=== PATIENT | female | born 1990 | race Caucasian/White ===

== ENCOUNTER 2025-01-10 13:21 | Outpatient (AMB) | payer BC, OTHER, SELFPAY ==
--- NOTE | 2025-01-10 13:39 | AMB.GYNCLNOT ---
Vital Signs 01/10/25 13:44 Height 1.73 m Height Method Stated Weight 73.539 kg Weight Measurement Method Standing Scale BMI 24.6 BP 134/83 H Blood Pressure Source Automatic Cuff Blood Pressure Location Right Upper Arm Position Sitting Respiration 18 Pulse 71 Pulse Source Monitor Temp 98.2 F Temp Source Temporal Artery Scan Pulse Oximetry (%) 98 Oxygen Delivery Method Room Air Allergies/Home Meds Allergies & Medications Allergies No Known Allergies Allergy (Verified 02/04/25 19:25) Intake Visit Data Collection New Patient or Established: New Patient (never been to [facility]) Reason for Visit:: DISCUSS RECURRENT SAB Seen by Clinical Staff ONLY (RN/MA): No Titrator Required: No Do You Feel Safe at Home: Yes Authorities Contacted: N/A Primary Care Provider: NO PRIMARY CARE PCP or OBGYN visit in last 3 months: No Hx Now: No Are you currently on any form of Control: No Last menstrual period: 12/21/24 Pain Present Currently: No Smoking Status Smoking Status: Never smoker Patrol Guard history Patrol Guard History Menstrual regularity: regular Flow: light Monthly: Yes How many days does period last: 5 Age at menarche: 13 Currently sexually active: Yes ER PHYSICIAN: Past Medical History Additional Operations/Hospitalizations (year & reason): in 2019 in 2021 D&C January 2024 Other Relevant History: No chronic medical problems. No diabetes, no hypertension, no asthma. No medications. Questionnaires Covid-19 Vaccine Questionnaire Has patient been vacinated for Covid-19 Have you been vacinated for Covid-19: No PHQ-9 PHQ-2 Over the last 2 weeks, how often have you been bothered by any of the following problems? 1. Little interest or pleasure in doing things: not at all 2. Feeling down, depressed, or hopeless: not at all Total score: 0 Social History Living Situation History Marital Status: Lives With: Family Housing: House Housing Other:: The patient has a 5-year-old and 3-year-old at home. Tobacco History Smoking Status: Never smoker Alcohol History Alcohol Intake: Never Alcohol Intake Frequency: 0-2 Drinks per Day Domestic Abuse History Do You Feel Safe at Home: Yes History of Present Illness HPI Narrative The patient is a 34-year-old -0-2-2 history of x 2. The first was in 2019. She was my patient in [place]. The first was for chorioamnionitis and the second one was a repeat . The patient had desired a TOLAC with that delivery but the physician on-call would not allow that.. She then went on to have a miscarriage in 2023. She was 11 weeks along. She ended up bleeding heavily and went to the ER in [place] where a suction D&C was performed. She needed a lot of medications after the D&C to control her bleeding but did not end up with a blood transfusion. In October 2024 she got again and miscarried a 10-week on her own with no D&C. The patient is wondering why she keeps miscarrying. She is healthy. She has no new medical conditions. Her is also healthy. He has been the same partner for all her pregnancies. She would also like a Pap smear done today because this has not been done since 2021. Her cycles are regular monthly lasting 5 days they occur every 28 days. Patient did not release her records from [place] to me. Review of Systems Review of Systems Narrative Review of Systems: Patient reports frequent headaches. No hot flashes, no night sweats. Her cycles are regular monthly. No dyspareunia. No joint complaints. No urinary complaints Exam General Limitations: no limitations General Appearance: alert, in no apparent distress, comfortable, cooperative, well groomed and anxious Neck Neck exam: Present normal inspection, full ROM and trachea midline Chest Chest inspection: Present normal inspection and symmetric chest wall rise Exp Chest Breast: bilateral: other (Normal breast exam bilaterally) Resp Respiratory exam: Present normal lung sounds bilaterally Card Cardiovascular exam: Present regular rate, normal rhythm and normal heart sounds Abdominal Abdominal exam: Present soft, normal bowel sounds and scar (Well-healed Pfannenstiel scar present) External exam: Present normal external exam Speculum exam: Present normal speculum exam Bimanual exam: Present normal bimanual exam (Uterus is anteverted, normal-sized nontender. No adnexal masses or tenderness) Extremities Extremities exam: Present normal inspection and full ROM Psych Psychiatric exam: Present normal affect and normal mood Skin Skin exam: Present warm, dry, intact and normal color Office Procedures OB Clinic LOC & Office Proc's Nursing/Assessment Patient Status: Initial/New Patient OB Clinic Nursing Assessment: Medication Reconciliation, Update PMH in EMR and Vital Signs OB Clinic Coordination of Care: Education Complex Pt/Fam, Consent,records obtained, informed consent, Lab and Imaging orders and Staff clarify orders New Patient Charge New Patient Point Assignment: [id number] New Patient Point Charge: HISTOLOGICAL ILLUSTRATOR Level 3 ([id number]) Assessment & Plan Diagnosis / Problem List (1) History of recurrent , not currently : Status: Acute Assessment and Plan: I will order lab work including thyroid levels, TSH, thyroid peroxidase antibodies, anticardiolipin antibodies IgG and IgM, lupus anticoagulant and anti-B2 Glyco lipoprotein levels. Patient can continue her vitamins, baby aspirin, and extra folic acid. She can take progesterone when she is . I told the patient we do not do VBACs at [facility] especially not on 2 prior C-sections so if she does become and she wants to she will not be able to deliver at [facility]. I explained that we do not have anesthesia available 24 hours a day immediately and so it is not safe for her to . This is the hospital policy. Her ultrasound is normal with no signs of fibroids or cavity abnormalities. The patient might be interested in screening through [employer] for recessive genes. We will put her in contact with the rep who can get this set up and ordered. If she is positive then her needs to be tested. Karyotyping might be quite expensive for both the patient and her but it is also a possibility. (2) Women's annual routine gynecological examination: Status: Acute Assessment and Plan: Pap with high-risk HPV is performed breast exam done encouraged BUSINESS INTELLIGENCE MANAGER: Papsmear Pap Smear Procedure [place] in room during procedure?: No Pre-op diagnosis general: Annual wellness exam Post-op diagnosis procedure note: Same Procedure Notes:: Pap with high-risk HPV was performed Papsmear completed: yes
[2025-01-10 13:44] VITALS: BP 134/83; PULSE 71; RESP 18; TEMP 36.8; O2SAT 98; BMI 24.6
== END 2025-01-10 14:16 | disposition home or self-care (01) ==
LOC: HODSOBC 13:21
PROVIDERS: Supervising Provider Obstetrics & Gynecology; Visit Provider Obstetrics & Gynecology
DX: Z01.419 Encounter for gynecological examination (general) (routine) without abnormal findings (principal); N96 Recurrent pregnancy loss
CPT/HCPCS: 99203; G0463

== ENCOUNTER 2025-02-21 09:54 | Outpatient (AMB) | payer BC, OTHER, SELFPAY ==
[2025-02-21 10:01] VITALS: BP 120/80; PULSE 77; RESP 17; TEMP 36.5; O2SAT 97; BMI 24.4
--- NOTE | 2025-02-21 10:01 | AMB.GYNCLNOT ---
Vital Signs 02/21/25 10:01 Height 1.73 m Height Method Measured Weight 73.085 kg Weight Measurement Method Standing Scale BMI 24.4 BP 120/80 Blood Pressure Source Automatic Cuff Blood Pressure Location Right Upper Arm Position Sitting Respiration 17 Pulse 77 Pulse Source Monitor Temp 97.7 F Temp Source Temporal Artery Scan Pulse Oximetry (%) 97 Oxygen Delivery Method Room Air Allergies/Home Meds Allergies & Medications Allergies No Known Allergies Allergy (Verified 02/21/25 10:02) Medication Reconciliation No Known Home Medications 02/04/25 [History Confirmed 02/21/25] Intake Visit Data Collection New Patient or Established: Established Patient (seen at [facility] within 3 years) Reason for Visit:: DISCUSS LAB RESULTS Consent obtained for Telemed Visit: No Seen by Clinical Staff ONLY (RN/MA): No Carpet Sewer Required: No Do You Feel Safe at Home: Yes Authorities Contacted: N/A PCP or OBGYN visit in last 3 months: Yes Date of Last PCP or OBGYN visit: 01/10/25 Hx Now: No Are you currently on any form of Control: No Pain Present Currently: No Pain Scale Used: [place]-/Numerical Pain scale:: 0 Smoking Status Smoking Status: Never smoker 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 1. Little interest or pleasure in doing things: not at all Social History Living Situation History Lives With: Family Housing: House Housing Other:: The patient has a 5-year-old and 3-year-old at home. Tobacco History Smoking Status: Never smoker Alcohol History Alcohol Intake: Never Alcohol Intake Frequency: 0-2 Drinks per Day Domestic Abuse History Do You Feel Safe at Home: Yes History of Present Illness HPI Narrative The patient is a 34-year-old -0-2-2 presents to discuss ultrasound results. She did have an ultrasound at [facility] which I do not have on the chart. We will try to get a hold of these results. She had some lab work at [facility] including thyroid ,prolactin and lupus anticoagulant coagulant and antiphospholipid antibodies. We called [facility] and they faxed over what they have. Of note they were just drawn 02/06/2025. Her TSH prolactin and free T3 are all normal and her TERRENCE and rheumatoid factor are normal and her complement 3 and 4 are normal. I do not have any other lab work in [facility] states everything is still pending. Patient wants a workup for why she has had 2 miscarriages. I did give her information on [facility] and checking [place] screening. She is not sure if she will proceed with genetic screening or not because she states there is nothing they can do about it . She is unwilling to pursue IVF. The plan will be to look up all the reports that are missing and call her once all her lab work is back. I explained if she has lupus anticoagulant or antiphospholipid panel body syndrome she will need Lovenox during her next . Patient states she is moving to a different house and does not want to try to get for at least a month. Office Procedures OB Clinic LOC & Office Proc's Nursing/Assessment Patient Status: Established Patient OB Clinic Nursing Assessment: Medication Reconciliation, Update PMH in EMR and Vital Signs OB Clinic Coordination of Care: Complex Care and Chronic Disease 1-5, Consent,records obtained, informed consent, Education Simp Pt/Fam and 4+ Authorizations needed Established Patient Charge Established Patient Point Assignment: 100 Established Patient Point Charge: EP Level 3 ([id number]) Assessment & Plan Diagnosis / Problem List (1) History of recurrent , not currently : Status: Acute Assessment and Plan: Will call the patient once her lab work and ultrasound are back. A lot of the labs are send outs and might take a couple more weeks to come back. Patient is using condoms for contraception at this time and not planning to even think about getting till she is settled in her new house at least a month.
== END 2025-02-21 10:38 | disposition home or self-care (01) ==
LOC: HODSOBC 09:54
PROVIDERS: Supervising Provider Obstetrics & Gynecology; Visit Provider Obstetrics & Gynecology
DX: N96 Recurrent pregnancy loss (principal)
CPT/HCPCS: 99213; G0463